=== PATIENT | female | born 1965 | race Caucasian/White ===

== ENCOUNTER 2024-04-13 00:32 | Inpatient (IN) | payer OTHER ==
[2024-04-13] VITALS (7 sets, daily range): BP systolic 134–178; BP diastolic 67–109
[~2024-04-13] VITALS: Ht 152.4 cm; Wt 70.3 kg
[2024-04-13] MEDS ORDERED: Albuterol Sulf/Ipratropium 3 ML VIAL NEB ONE ×2 (00:45→02:45)
[2024-04-13] MEDS ORDERED: ZESTRIL10 MG PO (00:47)
[2024-04-13] MEDS ORDERED: ATENOLOL25 MG PO (00:47)
[2024-04-13] MEDS ORDERED: IOHEXOL 350 MG/ML 100 ML VIAL IV ONE (01:00)
[2024-04-13] MEDS ORDERED: SODIUM CHLORIDE 0.9% 100 ML BAG IV ONE (01:00)
[2024-04-13 01:15] LABS: BASO # 0.1 10*3/uL (0.0-0.1); EOS # 0.3 10*3/uL (0.0-0.4); EOS % 3.3 % (1.0-4.0); LYMPH # 3.4 10*3/uL (1.3-4.4); LYMPH % 44.6 % (27.0-41.0); MEAN CELL VOLUME 91.6 fl (81.0-99.0); MEAN CORPUSCULAR HGB 30.6 pg (27.0-31.0); MEAN CORPUSCULAR HGB CONC 33.4 g/dl (33.0-37.0); MEAN PLATELET VOLUME 10.6 fl (9.6-12.3); MONO # 0.3 10*3/uL (0.1-1.0); MONO % 4.5 % (3.0-9.0); NEUT # 3.6 10*3/uL (2.3-7.9); NEUT % 46.5 % (47.0-73.0); PLATELET COUNT AUTOMATED 207 10*3/uL (130-400); RED BLOOD COUNT 3.82 10*6/uL (4.10-5.10); RED CELL DISTRI WIDTH 13.3 % (0-14.5); WHITE BLOOD COUNT 7.6 10*3/uL (4.8-10.8)
[2024-04-13 01:27] LABS: ACT PARTIAL THROMBO TIME 25.6 SECONDS (20.0-32.1)
[2024-04-13 01:35] LABS: BUN 13 mg/dl (9-23); CHLORIDE 106 mmol/L (98-107)
[2024-04-13] MEDS ORDERED: POTASSIUM CHLORIDE 20 MEQ TAB PO ONE (02:40)
[2024-04-13] MEDS ORDERED: AZITHROMYCIN 250 MG TAB PO ONE (02:45)
[2024-04-13] MEDS ORDERED: Ceftriaxone Sodium 1 GM/10 ML SYR IV ONE (02:45)
[2024-04-13] MEDS ORDERED: Dexamethasone Sodium Phospha 20 MG/5 ML VIAL IV ONE (02:45)
[2024-04-13] MEDS ORDERED: SODIUM CHLORIDE 0.9% 1,000 ML IV SCH (02:50)
[2024-04-13] MEDS ORDERED: Ondansetron Hydrochloride 4 MG/2 ML VIAL IV ONE (03:05)
[2024-04-13] MEDS ORDERED: hydrOXYzine pamoate 25 MG CAP PO ONE (03:55)
[2024-04-13] MEDS ORDERED: MORPHINE Sulfate 2 MG/ML SYR IV PRN (04:15)
[2024-04-13] MEDS ORDERED: Ondansetron Hydrochloride 4 MG/2 ML VIAL IV PRN (04:15)
[2024-04-13] MEDS ORDERED: BISACODYL 10 MG SUPP R PRN (04:15)
[2024-04-13] MEDS ORDERED: Magnesium Hydroxide 30 ML UDC PO PRN (04:15)
[2024-04-13] MEDS ORDERED: TEMAZEPAM 15 MG CAP PO PRN (04:15)
[2024-04-13] MEDS ORDERED: BISACODYL 5 MG TAB PO PRN (04:15)
[2024-04-13] MEDS ORDERED: Albuterol Sulf/Ipratropium 3 ML VIAL NEB SCH (04:20)
[2024-04-13 06:23] LABS: BASO % 0.6 % (0.0-1.0); EOS % 0.3 % (1.0-4.0); HEMATOCRIT 36.3 % (37.0-47.0); LYMPH # 0.7 10*3/uL (1.3-4.4); MEAN CELL VOLUME 90.8 fl (81.0-99.0); MEAN CORPUSCULAR HGB 30.8 pg (27.0-31.0); MEAN CORPUSCULAR HGB CONC 33.9 g/dl (33.0-37.0); MEAN PLATELET VOLUME 11.5 fl (9.6-12.3); MONO # 0.1 10*3/uL (0.1-1.0); MONO % 0.9 % (3.0-9.0); NEUT % 88.1 % (47.0-73.0); PLATELET COUNT AUTOMATED 194 10*3/uL (130-400); RED CELL DISTRI WIDTH 13.5 % (0-14.5); WHITE BLOOD COUNT 6.8 10*3/uL (4.8-10.8)
[2024-04-13 06:32] LABS: ACT PARTIAL THROMBO TIME 25.6 SECONDS (20.0-32.1)
[2024-04-13 06:53] LABS: ALKALINE PHOSPHATASE 78 U/L (46-116); BUN 10 mg/dl (9-23); CHLORIDE 107 mmol/L (98-107); CHOLESTEROL 240 mg/dL (<200); FREE T4 1.18 ng/dl (0.89-1.76); LDL CHOLESTEROL 173 mg/dL (9-159); POTASSIUM 3.9 mmol/L (3.4-5.1); SGPT/ALT 54 U/L (5-49); TOTAL PROTEIN 7.1 gm/dL (6.0-8.0); TRIGLYCERIDES 88 mg/dl (<150)
[2024-04-13 08:49] LABS: VITAMIN D, 25-HYDROXY 28.9 ng/mL (30-100)
[2024-04-13] MEDS ORDERED: Dextromethorphan Hydrobromid 1 TAB TAB PO SCH (10:00)
[2024-04-13] MEDS ORDERED: Enoxaparin Sodium 40 MG/0.4 ML SYR SC SCH (10:00)
[2024-04-13] MEDS ORDERED: methylPREDNISolone sod succ 40 MG VIAL IV SCH (12:25)
[2024-04-13] MEDS ORDERED: AZITHROMYCIN 250 ML IV SCH (22:00)
[2024-04-13] MEDS ORDERED: Ceftriaxone Sodium 1 GM,IV 1 EA in SYRINGE INFUSION 10 ML IV SCH (22:00)
[2024-04-14] VITALS: BP 158/88
[2024-04-14 06:13] LABS: MEAN CELL VOLUME 91.9 fl (81.0-99.0); MEAN CORPUSCULAR HGB 30.9 pg (27.0-31.0); MEAN CORPUSCULAR HGB CONC 33.6 g/dl (33.0-37.0); MEAN PLATELET VOLUME 11.5 fl (9.6-12.3); PLATELET COUNT AUTOMATED 196 10*3/uL (130-400); RED BLOOD COUNT 3.59 10*6/uL (4.10-5.10); RED CELL DISTRI WIDTH 13.9 % (0-14.5); WHITE BLOOD COUNT 15.6 10*3/uL (4.8-10.8)
[2024-04-14 06:25] LABS: MANUAL DIFF REFLEX YES
[2024-04-14 06:40] LABS: ALKALINE PHOSPHATASE 71 U/L (46-116); BUN 14 mg/dl (9-23); CHLORIDE 108 mmol/L (98-107); POTASSIUM 4.3 mmol/L (3.4-5.1); SGPT/ALT 106 U/L (5-49); TOTAL PROTEIN 6.7 gm/dL (6.0-8.0)
[2024-04-14 07:06] LABS: PLATELET SUFFICIENCY NORMAL (NORMAL); TOTAL CELLS COUNTED 100 #CELLS
[2024-04-14 08:00] VITALS: BP 156/87
[2024-04-14] MEDS ORDERED: TENORMIN50 MG PO (09:23)
[2024-04-14] MEDS ORDERED: CYCLOBENZAPRINE10 MG PO (09:23)
[2024-04-14] MEDS ORDERED: LISINOPRIL20 MG PO (09:23)
[2024-04-14] MEDS ORDERED: ATENOLOL 50 MG TAB PO SCH (10:00)
[2024-04-14] MEDS ORDERED: LISINOPRIL 20 MG TAB PO SCH (10:00)
[2024-04-14 12:00] VITALS: BP 134/80
[2024-04-14 16:00] VITALS: BP 127/87
[2024-04-14 20:00] VITALS: BP 131/92
[2024-04-14] MEDS ORDERED: Cyclobenzaprine Hydrochlorid 10 MG TAB PO SCH (22:00)
[2024-04-15] VITALS: BP 128/101
[2024-04-15 06:32] LABS: BASO # 0.1 10*3/uL (0.0-0.1); BASO % 0.4 % (0.0-1.0); EOS % 0.3 % (1.0-4.0); HEMATOCRIT 35.3 % (37.0-47.0); LYMPH # 3.6 10*3/uL (1.3-4.4); LYMPH % 30.8 % (27.0-41.0); MEAN CELL VOLUME 92.4 fl (81.0-99.0); MEAN CORPUSCULAR HGB 30.9 pg (27.0-31.0); MEAN CORPUSCULAR HGB CONC 33.4 g/dl (33.0-37.0); MEAN PLATELET VOLUME 11.3 fl (9.6-12.3); MONO # 0.6 10*3/uL (0.1-1.0); MONO % 4.7 % (3.0-9.0); NEUT # 7.4 10*3/uL (2.3-7.9); NEUT % 63.5 % (47.0-73.0); PLATELET COUNT AUTOMATED 210 10*3/uL (130-400); RED BLOOD COUNT 3.82 10*6/uL (4.10-5.10); RED CELL DISTRI WIDTH 14.6 % (0-14.5); WHITE BLOOD COUNT 11.7 10*3/uL (4.8-10.8)
[2024-04-15 06:56] LABS: ALKALINE PHOSPHATASE 70 U/L (46-116); BUN 20 mg/dl (9-23); CHLORIDE 108 mmol/L (98-107); POTASSIUM 4.3 mmol/L (3.4-5.1); SGPT/ALT 255 U/L (5-49); TOTAL PROTEIN 6.6 gm/dL (6.0-8.0)
[2024-04-15 08:00] VITALS: BP 148/99
[2024-04-15] MEDS ORDERED: ESCITALOPRAM OXALATE 10 MG TAB PO SCH (10:00)
[2024-04-15] MEDS ORDERED: Levalbuterol Hydrochloride 1.25 MG VIAL NEB SCH (11:10)
[2024-04-15 12:00] VITALS: BP 135/87
[2024-04-15 16:00] VITALS: BP 158/114
[2024-04-15 20:00] VITALS: BP 160/90
[2024-04-15] MEDS ORDERED: Cyclobenzaprine Hydrochlorid 10 MG TAB PO SCH (20:00)
[2024-04-16 00:19] VITALS: BP 142/97; BP 146/92
[2024-04-16 03:56] LABS: BASO # 0.1 10*3/uL (0.0-0.1); BASO % 0.4 % (0.0-1.0); EOS % 0.2 % (1.0-4.0); HEMATOCRIT 34.8 % (37.0-47.0); LYMPH # 4.2 10*3/uL (1.3-4.4); LYMPH % 32.1 % (27.0-41.0); MEAN CELL VOLUME 94.3 fl (81.0-99.0); MEAN CORPUSCULAR HGB 30.1 pg (27.0-31.0); MEAN CORPUSCULAR HGB CONC 31.9 g/dl (33.0-37.0); MEAN PLATELET VOLUME 11.3 fl (9.6-12.3); MONO # 0.7 10*3/uL (0.1-1.0); MONO % 5.4 % (3.0-9.0); NEUT % 61.4 % (47.0-73.0); PLATELET COUNT AUTOMATED 217 10*3/uL (130-400); RED BLOOD COUNT 3.69 10*6/uL (4.10-5.10); RED CELL DISTRI WIDTH 14.4 % (0-14.5)
[2024-04-16 04:32] LABS: ALKALINE PHOSPHATASE 68 U/L (46-116); BUN 18 mg/dl (9-23); CHLORIDE 107 mmol/L (98-107); POTASSIUM 4.3 mmol/L (3.4-5.1); SGPT/ALT 198 U/L (5-49); TOTAL PROTEIN 6.4 gm/dL (6.0-8.0)
[2024-04-16] MEDS ORDERED: Technetium Tc 99M Mebrofenin 1 KIT KIT IV SCH (07:00)
[2024-04-16] MEDS ORDERED: SINCALIDE 5 MCG VIAL IV SCH (07:00)
[2024-04-16 08:00] VITALS: BP 148/96
[2024-04-16] MEDS ORDERED: Ceftriaxone Sodium 1 GM,IV 1 EA in SYRINGE INFUSION 10 ML IV SCH (09:00)
[2024-04-16] MEDS ORDERED: AZITHROMYCIN 250 ML IV SCH (10:00)
[2024-04-16] MEDS ORDERED: methylPREDNISolone sod succ 40 MG VIAL IV SCH (10:00)
[2024-04-16] MEDS ORDERED: LEVOFLOXACIN750 M2 PO (11:20)
[2024-04-16] MEDS ORDERED: PREDNISONE10 MG PO (11:20)
[2024-04-16] MEDS ORDERED: ESCITALOPRAM OX10 MG PO (11:20)
[2024-04-16 12:00] VITALS: BP 142/100
== END 2024-04-16 13:50 | disposition home or self-care (01) | DRG 871 ==
LOC: ED 00:32 → 4E 04:13 → EDHOLD 04:13 → 4E 04:40
PROVIDERS: Internal Medicine; Student in an Organized Health Care Education/Training Program; ADMIT Internal Medicine; ATTEND Internal Medicine
DX: A41.9 Sepsis, unspecified organism (principal); J15.69 Pneumonia due to other Gram-negative bacteria; J90 Pleural effusion, not elsewhere classified; E87.6 Hypokalemia; E66.9 Obesity, unspecified; R73.9 Hyperglycemia, unspecified; J45.30 Mild persistent asthma, uncomplicated; F41.0 Panic disorder [episodic paroxysmal anxiety]; F43.0 Acute stress reaction; R74.01 Elevation of levels of liver transaminase levels; K81.9 Cholecystitis, unspecified; F41.9 Anxiety disorder, unspecified; I10 Essential (primary) hypertension; Z79.899 Other long term (current) drug therapy; Z79.01 Long term (current) use of anticoagulants; Z79.2 Long term (current) use of antibiotics; Z88.8 Allergy status to other drugs, medicaments and biological substances; Z91.09 Other allergy status, other than to drugs and biological substances; Z90.710 Acquired absence of both cervix and uterus; Z87.891 Personal history of nicotine dependence; Z68.30 Body mass index [BMI] 30.0-30.9, adult

== ENCOUNTER 2024-06-01 12:56 | Emergency (ER) | payer OTHER ==
[~2024-06-01 12:56] MED LIST: ATENOLOL25 MG PO; CYCLOBENZAPRINE10 MG PO; ESCITALOPRAM OX10 MG PO; LEVOFLOXACIN750 M2 PO; LISINOPRIL20 MG PO; PREDNISONE10 MG PO; TENORMIN50 MG PO; ZESTRIL10 MG PO
[2024-06-01] MEDS ORDERED: IBUPROFEN 800 MG TAB PO ONE (14:50)
== END 2024-06-01 15:45 | disposition home or self-care (01) ==
LOC: ED 12:56
DX: S61.216A Laceration without foreign body of right little finger without damage to nail, initial encounter (principal); I10 Essential (primary) hypertension; F41.9 Anxiety disorder, unspecified; J45.909 Unspecified asthma, uncomplicated; Z88.5 Allergy status to narcotic agent; Z88.8 Allergy status to other drugs, medicaments and biological substances; Z90.710 Acquired absence of both cervix and uterus; Z90.89 Acquired absence of other organs; Z98.890 Other specified postprocedural states; W22.8XXA Striking against or struck by other objects, initial encounter; Y93.89 Activity, other specified; Y92.89 Other specified places as the place of occurrence of the external cause; Y99.8 Other external cause status

== ENCOUNTER 2024-06-13 17:07 | Emergency (ER) | payer OTHER ==
[~2024-06-13] VITALS: Wt 70.8 kg
[2024-06-14] MEDS ORDERED: Motrin,Rufen800 MG PO (12:01)
[2024-06-14] MEDS ORDERED: CYCLOBENZAPRINE5 M3 PO (21:16)
[2024-06-15] MEDS ORDERED: DOXYCYCLINE HY100 M3 PO (10:55)
[2024-06-15] MEDS ORDERED: ALDACTONE25 M1 PO (10:55)
[2024-06-15] MEDS ORDERED: LASIX20 MG PO (10:55)
[2024-06-15] MEDS ORDERED: LEVALBUTER1.25 MG/0. INH (10:58)
== END 2024-06-13 18:14 | disposition left against medical advice (07) ==
LOC: ED 17:07
DX: M25.69 Stiffness of other specified joint, not elsewhere classified (principal); Z88.5 Allergy status to narcotic agent; Z53.21 Procedure and treatment not carried out due to patient leaving prior to being seen by health care provider

== ENCOUNTER 2024-06-27 16:09 | Inpatient (IN) | payer OTHER ==
[~2024-06-27] VITALS: Ht 152.4 cm; Wt 67.8 kg
[~2024-06-27 16:09] MED LIST changes: -ARNUITY ELLIPT50 MCG INH; -WELLBUTRIN XL150 MG PO
[2024-06-27 16:20] VITALS: BP 158/103
[2024-06-27] MEDS ORDERED: ACETAMINOPHEN 325 MG TAB PO PRN (16:40)
[2024-06-27] MEDS ORDERED: Ondansetron Hydrochloride 4 MG/2 ML VIAL IV PRN (16:40)
[2024-06-27] MEDS ORDERED: BISACODYL 5 MG TAB PO PRN (16:40)
[2024-06-27 16:44] LABS: BASO # 0.1 10*3/uL (0.0-0.1); BASO % 1.1 % (0.0-1.0); EOS # 0.2 10*3/uL (0.0-0.4); EOS % 1.5 % (1.0-4.0); HEMATOCRIT 39.2 % (37.0-47.0); LYMPH # 3.4 10*3/uL (1.3-4.4); LYMPH % 33.6 % (27.0-41.0); MEAN CELL VOLUME 91.2 fl (81.0-99.0); MEAN CORPUSCULAR HGB 29.5 pg (27.0-31.0); MEAN CORPUSCULAR HGB CONC 32.4 g/dl (33.0-37.0); MEAN PLATELET VOLUME 10.6 fl (9.6-12.3); MONO # 0.5 10*3/uL (0.1-1.0); NEUT # 5.9 10*3/uL (2.3-7.9); NEUT % 58.7 % (47.0-73.0); PLATELET COUNT AUTOMATED 250 10*3/uL (130-400); RED CELL DISTRI WIDTH 13.3 % (0-14.5)
[2024-06-27 17:11] LABS: POTASSIUM 3.6 mmol/L (3.4-5.1)
[2024-06-27] MEDS ORDERED: FUROSEMIDE 40 MG/4 ML VIAL IV ONE (17:30)
[2024-06-27 19:50] VITALS: BP 135/95
[2024-06-27] MEDS ORDERED: SACUBITRIL/VALSARTAN 24 MG-26 MG TABLET PO SCH (22:00)
[2024-06-27] MEDS ORDERED: Cyclobenzaprine Hydrochlorid 10 MG TAB PO PRN (22:10)
[2024-06-27] MEDS ORDERED: ALPRAZolam 0.25 MG TAB PO PRN (22:10)
[2024-06-27 23:21] VITALS: BP 135/90
[2024-06-28 00:35] VITALS: BP 128/80
[2024-06-28] MEDS ORDERED: ARNUITY ELLIPT50 MCG INH (01:22)
[2024-06-28] MEDS ORDERED: WELLBUTRIN XL150 MG PO (01:23)
[2024-06-28 06:34] LABS: BUN 12 mg/dl (9-23); CHLORIDE 103 mmol/L (98-107); CHOLESTEROL 228 mg/dL (<200); FREE T4 1.37 ng/dl (0.89-1.76); LDL CHOLESTEROL 161 mg/dL (9-159); POTASSIUM 3.3 mmol/L (3.4-5.1); TRIGLYCERIDES 118 mg/dl (<150)
[2024-06-28 08:00] VITALS: BP 144/92
[2024-06-28] MEDS ORDERED: ASPIRIN ENTERIC COATED 81 MG TAB PO SCH (10:00)
[2024-06-28] MEDS ORDERED: ATORVASTATIN CALCIUM 40 MG TABLET PO SCH (10:00)
[2024-06-28] MEDS ORDERED: Enoxaparin Sodium 40 MG/0.4 ML SYR SC SCH (10:00)
[2024-06-28] MEDS ORDERED: METOPROLOL SUCCINATE XR 25 MG TAB PO SCH (10:00)
[2024-06-28] MEDS ORDERED: buPROPion XL 150 MG TAB PO SCH (10:00)
[2024-06-28] MEDS ORDERED: SACUBITRIL/VALSARTAN 24 MG-26 MG TABLET PO SCH (10:00)
[2024-06-28] MEDS ORDERED: POTASSIUM CHLORIDE 20 MEQ TAB PO ONE (11:45)
[2024-06-28 12:00] VITALS: BP 115/82
[2024-06-28 16:00] VITALS: BP 119/17; BP 119/79
[2024-06-28 20:00] VITALS: BP 126/96
[2024-06-29] VITALS: BP 136/96
[2024-06-29 00:45] VITALS: BP 130/82
[2024-06-29 06:07] LABS: BASO # 0.1 10*3/uL (0.0-0.1); BASO % 1.4 % (0.0-1.0); EOS # 0.2 10*3/uL (0.0-0.4); EOS % 2.6 % (1.0-4.0); HEMATOCRIT 42.3 % (37.0-47.0); LYMPH # 2.2 10*3/uL (1.3-4.4); LYMPH % 34.6 % (27.0-41.0); MEAN CELL VOLUME 92.2 fl (81.0-99.0); MEAN CORPUSCULAR HGB 29.6 pg (27.0-31.0); MEAN CORPUSCULAR HGB CONC 32.2 g/dl (33.0-37.0); MEAN PLATELET VOLUME 10.7 fl (9.6-12.3); MONO # 0.3 10*3/uL (0.1-1.0); MONO % 5.3 % (3.0-9.0); NEUT # 3.6 10*3/uL (2.3-7.9); NEUT % 55.8 % (47.0-73.0); PLATELET COUNT AUTOMATED 254 10*3/uL (130-400); RED BLOOD COUNT 4.59 10*6/uL (4.10-5.10); RED CELL DISTRI WIDTH 13.4 % (0-14.5); WHITE BLOOD COUNT 6.5 10*3/uL (4.8-10.8)
[2024-06-29 06:29] LABS: ALKALINE PHOSPHATASE 59 U/L (46-116); BUN 11 mg/dl (9-23); CHLORIDE 106 mmol/L (98-107); POTASSIUM 4.2 mmol/L (3.4-5.1); SGPT/ALT 16 U/L (5-49); TOTAL PROTEIN 6.6 gm/dL (6.0-8.0)
[2024-06-29 08:00] VITALS: BP 127/89
[2024-06-29] MEDS ORDERED: SPIRONOLACTONE 25 MG TAB PO SCH (10:00)
[2024-06-29] MEDS ORDERED: MUPIROCIN 15 GM TUBE T SCH (10:00)
[2024-06-29] MEDS ORDERED: EMPAGLIFLOZIN 10 MG TABLET PO SCH (10:00)
[2024-06-29 12:00] VITALS: BP 108/56
[2024-06-29 16:00] VITALS: BP 106/71
[2024-06-29 20:00] VITALS: BP 114/76
[2024-06-30] VITALS: BP 134/93
[2024-06-30 06:38] LABS: BASO # 0.1 10*3/uL (0.0-0.1); BASO % 1.1 % (0.0-1.0); EOS # 0.2 10*3/uL (0.0-0.4); EOS % 2.7 % (1.0-4.0); HEMATOCRIT 41.4 % (37.0-47.0); LYMPH # 2.2 10*3/uL (1.3-4.4); LYMPH % 31.5 % (27.0-41.0); MEAN CELL VOLUME 90.4 fl (81.0-99.0); MEAN CORPUSCULAR HGB 29.5 pg (27.0-31.0); MEAN CORPUSCULAR HGB CONC 32.6 g/dl (33.0-37.0); MEAN PLATELET VOLUME 11.4 fl (9.6-12.3); MONO # 0.3 10*3/uL (0.1-1.0); MONO % 4.8 % (3.0-9.0); NEUT # 4.2 10*3/uL (2.3-7.9); NEUT % 59.8 % (47.0-73.0); PLATELET COUNT AUTOMATED 251 10*3/uL (130-400); RED BLOOD COUNT 4.58 10*6/uL (4.10-5.10); RED CELL DISTRI WIDTH 13.4 % (0-14.5)
[2024-06-30 06:58] LABS: BUN 14 mg/dl (9-23); CHLORIDE 106 mmol/L (98-107); POTASSIUM 4.4 mmol/L (3.4-5.1)
[2024-06-30 08:00] VITALS: BP 112/85
[2024-06-30] MEDS ORDERED: HYDROCORTISONE 1% CREAM 14.2 GM TUBE T SCH (10:00)
[2024-06-30 12:00] VITALS: BP 114/79
[2024-06-30 16:00] VITALS: BP 121/85
[2024-06-30 20:00] VITALS: BP 121/85
[2024-06-30] MEDS ORDERED: METOPROLOL SUCCINATE XR 25 MG TAB PO SCH (22:00)
[2024-07-01 08:00] VITALS: BP 107/80
[2024-07-01] MEDS ORDERED: ATORVASTATIN CA40 M1 PO (09:04)
[2024-07-01] MEDS ORDERED: JARDIANCE10 MG PO (09:04)
[2024-07-01] MEDS ORDERED: ASPIRIN ADULT L81 M2 PO (09:04)
[2024-07-01] MEDS ORDERED: CYCLOBENZAPRINE10 MG PO (09:04)
[2024-07-01] MEDS ORDERED: METOPROLOL SUCC25 M2 PO (09:04)
[2024-07-01] MEDS ORDERED: ENTRESTO 24 MG1 EACH PO (09:04)
== END 2024-07-01 10:00 | disposition short-term general hospital (02) | DRG 291 ==
LOC: ED 16:09 → 4E 16:26 → EDHOLD 16:26 → 4E 23:09
PROVIDERS: Internal Medicine; Nurse Practitioner Family; Student in an Organized Health Care Education/Training Program; ADMIT Internal Medicine; ATTEND Internal Medicine
DX: I11.0 Hypertensive heart disease with heart failure (principal); I50.21 Acute systolic (congestive) heart failure; F41.9 Anxiety disorder, unspecified; F32.A Depression, unspecified; I42.0 Dilated cardiomyopathy; E87.6 Hypokalemia; E78.5 Hyperlipidemia, unspecified; R73.03 Prediabetes; I08.1 Rheumatic disorders of both mitral and tricuspid valves; S60.512A Abrasion of left hand, initial encounter; J45.40 Moderate persistent asthma, uncomplicated; X58.XXXA Exposure to other specified factors, initial encounter; Y93.89 Activity, other specified; Z90.710 Acquired absence of both cervix and uterus; Z87.891 Personal history of nicotine dependence; Z80.3 Family history of malignant neoplasm of breast; Z88.5 Allergy status to narcotic agent; Y92.89 Other specified places as the place of occurrence of the external cause; Y99.8 Other external cause status; Z79.899 Other long term (current) drug therapy; Z88.8 Allergy status to other drugs, medicaments and biological substances; Z79.51 Long term (current) use of inhaled steroids

== ENCOUNTER → 2024-06-27 | Outpatient (CLI) | payer OTHER ==
[~2024-06-27] MED LIST changes: +ALDACTONE25 M1 PO; +ARNUITY ELLIPT50 MCG INH; +CYCLOBENZAPRINE5 M3 PO; +DOXYCYCLINE HY100 M3 PO; +LASIX20 MG PO; +LEVALBUTER1.25 MG/0. INH; +Motrin,Rufen800 MG PO; +WELLBUTRIN XL150 MG PO
== END | disposition home or self-care (01) ==
LOC: CARD 14:32
PROVIDERS: ATTEND Internal Medicine
DX: I08.1 Rheumatic disorders of both mitral and tricuspid valves (principal); I50.9 Heart failure, unspecified

== ENCOUNTER 2024-10-22 02:03 | Emergency (ER) | payer OTHER, MEDICAID ==
[~2024-10-22] VITALS: Ht 152.4 cm; Wt 60.3 kg
[~2024-10-22 02:03] MED LIST changes: +ARNUITY ELLIPT50 MCG INH; +ASPIRIN ADULT L81 M2 PO; +ATORVASTATIN CA40 M1 PO; +ENTRESTO 24 MG1 EACH PO; +JARDIANCE10 MG PO; +METOPROLOL SUCC25 M2 PO; +WELLBUTRIN XL150 MG PO
[2024-10-22 02:19] LABS: BASO # 0.1 10*3/uL (0.0-0.1); BASO % 0.8 % (0.0-1.0); EOS # 0.2 10*3/uL (0.0-0.4); EOS % 2.7 % (1.0-4.0); HEMATOCRIT 39.7 % (37.0-47.0); MEAN CELL VOLUME 91.5 fl (81.0-99.0); MEAN CORPUSCULAR HGB CONC 31.7 g/dl (33.0-37.0); MONO # 0.5 10*3/uL (0.1-1.0); MONO % 7.6 % (3.0-9.0); NEUT % 60.8 % (47.0-73.0); PLATELET COUNT AUTOMATED 259 10*3/uL (130-400); RED BLOOD COUNT 4.34 10*6/uL (4.10-5.10); RED CELL DISTRI WIDTH 13.6 % (0-14.5); WHITE BLOOD COUNT 6.6 10*3/uL (4.8-10.8)
[2024-10-22 02:38] LABS: POTASSIUM 3.5 mmol/L (3.4-5.1)
[2024-10-22] MEDS ORDERED: MIRALAX POWDER17 G1 PO (04:20)
== END 2024-10-22 04:30 | disposition home or self-care (01) ==
LOC: ED 02:03
PROVIDERS: Internal Medicine
DX: K56.41 Fecal impaction (principal); E11.9 Type 2 diabetes mellitus without complications; E78.5 Hyperlipidemia, unspecified; K64.8 Other hemorrhoids; D63.1 Anemia in chronic kidney disease; I25.2 Old myocardial infarction; J45.909 Unspecified asthma, uncomplicated; I13.0 Hypertensive heart and chronic kidney disease with heart failure and stage 1 through stage 4 chronic kidney disease, or unspecified chronic kidney disease; I50.9 Heart failure, unspecified; E11.22 Type 2 diabetes mellitus with diabetic chronic kidney disease; N18.32 Chronic kidney disease, stage 3b; F41.9 Anxiety disorder, unspecified; Z88.5 Allergy status to narcotic agent; Z88.8 Allergy status to other drugs, medicaments and biological substances; Z90.89 Acquired absence of other organs; Z90.710 Acquired absence of both cervix and uterus; Z98.890 Other specified postprocedural states